=== PATIENT | female | born 1960 | race Caucasian/White ===

== ENCOUNTER 2017-12-13 13:12 | Day surgery (SDC) | payer OTHER ==
[2017-12-13] MEDS ORDERED: PROPOFOL 40 ML (14:43)
== END 2017-12-13 15:56 | disposition home or self-care (01) ==
LOC: GIL 13:12
DX: Z12.11 Encounter for screening for malignant neoplasm of colon (principal); K63.89 Other specified diseases of intestine
CPT/HCPCS: 45380; 88305